=== PATIENT | female | born 1960 | race Caucasian/White ===

== ENCOUNTER 2022-03-25 06:41 | Inpatient (IN) | payer MEDICAID, OTHER ==
[~2022-03-25] VITALS: Ht 152.4 cm; Wt 102.5 kg
[2022-03-25] MEDS ORDERED: ALBUTEROL SULFATE 2.5 MG/0.5 ML INH NEB SOLN INH ONE (07:00)
[2022-03-25] MEDS ORDERED: IPRATROPIUM 0.5MG/ALBUTEROL 2.5MG INH SOL UD 3ML (DUONEB) NEB ONE (07:00)
[2022-03-25] MEDS ORDERED: methylPREDNISolone 125MG 2ML VIAL IV ONE (07:00)
[2022-03-25 07:10] LABS: ABG BASE EXCESS 0.3 (-2.0-2.0); ABG HCO3 24.6 MEQ/L (22.0-26.0); ABG O2 SATURATION 94.9 % (95.0-99.0); ABG PARTIAL PRESSURE CO2 38.8 mmHg (35.0-45.0); ABG PARTIAL PRESSURE O2 65.4 mmHg (75.0-100.0); ABG STANDARD HCO3 24.7 MEQ/L (22.0-26.0); ABG TOTAL CO2 25.8 MEQ/L (23.0-31.0)
[2022-03-25 07:19] LABS: BASO # 0.1 10^3/uL (0.0-0.2); BASO % 1.5 % (0.0-1.0); EOS # 0.2 10^3/uL (0.0-0.5); EOS % 1.7 % (0.0-3.0); HEMATOCRIT 44.4 % (36.0-47.0); HEMOGLOBIN 14.5 g/dl (12.0-15.5); LYMPH # 2.2 10^3/uL (1.5-5.0); LYMPH % 24.8 % (24.0-44.0); MEAN CORPUSCULAR HGB CONC 32.7 g/dl (32.0-36.5); MEAN CORPUSCULAR VOLUME 88.8 fl (80.0-96.0); MONO # 1.3 10^3/uL (0.0-0.8); MONO % 14.5 % (2.0-8.0); NEUTROPHILS # 4.9 10^3/uL (1.5-8.5); PLATELET COUNT, AUTOMATED 343 10^3/uL (150-450); WHITE BLOOD COUNT 8.7 10^3/uL (4.0-10.0)
[2022-03-25 07:40] LABS: INR 0.88; PROTHROMBIN TIME 12.2 SECONDS (12.5-14.5)
[2022-03-25] MEDS ORDERED: ACETAMINOPHEN TAB 650MG DOSE (2X325MG) PO ONE (07:50)
[2022-03-25 07:59] LABS: CK-MB VALUE MASS 3.4 NG/ML (<3.6); MB/CK RELATIVE INDEX 1.63 (< OR =4)
[2022-03-25 08:01] LABS: ALBUMIN 3.8 GM/DL (3.2-5.2); ALT/SGPT 22 U/L (12-78); BILIRUBIN,DIRECT < 0.1 MG/DL (0.0-0.2); BILIRUBIN,TOTAL 0.2 MG/DL (0.2-1.0); BLOOD UREA NITROGEN 8 MG/DL (7-18); CALCIUM LEVEL 8.8 MG/DL (8.8-10.2); CARBON DIOXIDE LEVEL 25 MEQ/L (21-32); CHLORIDE LEVEL 105 MEQ/L (98-107); GLOMERULAR FILTRATION RATE > 60.0 (>45); GLUCOSE, FASTING 149 MG/DL (70-100); NT-PRO BNP 49 PG/ML (<125); SODIUM LEVEL 136 MEQ/L (136-145); THYROXINE (T4) 4.7 UG/DL (4.5-12.0); TOTAL PROTEIN 7.5 GM/DL (6.4-8.2)
[2022-03-25] MEDS ORDERED: AZITHROMYCIN 250MG TABLET PO SCH (09:00)
[2022-03-25 09:03] LABS: CK-MB VALUE MASS 3.4 NG/ML (<3.6); MB/CK RELATIVE INDEX 2.83 (< OR =4)
[2022-03-25] MEDS ORDERED: HOME MED LIST COMPLETE! XX SCH (09:15)
[2022-03-25] MEDS ORDERED: ISOVUE-370 76% 100ML VIAL As Ordered ONE (10:00)
[2022-03-25] MEDS ORDERED: IPRATROPIUM 0.5MG/ALBUTEROL 2.5MG INH SOL UD 3ML (DUONEB) NEB PRN (10:40)
[2022-03-25] MEDS ORDERED: methylPREDNISolone 40MG 1ML VIAL IV ONE (11:30)
[2022-03-25 12:30] VITALS: BP 130/81
[2022-03-25] MEDS: NICOTINE 14 MG/24 HR TRANSDERMAL TD SCH (12:57)
[2022-03-25] MEDS: amLODIPine 5 MG TAB PO SCH (12:58)
[2022-03-25 14:00] VITALS: BP 118/77
[2022-03-25] MEDS: ACETAMINOPHEN TAB 650MG DOSE (2X325MG) PO PRN ×2 (14:06→21:09)
[2022-03-25 14:08] VITALS: O2SAT 90
[2022-03-25] MEDS: IPRATROPIUM 0.5MG/ALBUTEROL 2.5MG INH SOL UD 3ML (DUONEB) NEB SCH ×3 (14:48→19:31)
[2022-03-25] MEDS: methylPREDNISolone 40MG 1ML VIAL IV SCH (16:59)
[2022-03-25 22:00] VITALS: BP 117/78
[2022-03-26] MEDS ORDERED: methylPREDNISolone 40MG 1ML VIAL IV SCH
[2022-03-26] MEDS: IPRATROPIUM 0.5MG/ALBUTEROL 2.5MG INH SOL UD 3ML (DUONEB) NEB SCH ×6 (00:29→21:36)
[2022-03-26] MEDS: methylPREDNISolone 40MG 1ML VIAL IV SCH ×2 (04:24→16:49)
[2022-03-26 06:00] VITALS: BP 103/75
[2022-03-26 06:12] LABS: HEMATOCRIT 41.4 % (36.0-47.0); HEMOGLOBIN 13.4 g/dl (12.0-15.5); MEAN CORPUSCULAR HEMOGLOBIN 29.1 pg (27.0-33.0); MEAN CORPUSCULAR HGB CONC 32.4 g/dl (32.0-36.5); MEAN CORPUSCULAR VOLUME 89.8 fl (80.0-96.0); PLATELET COUNT, AUTOMATED 366 10^3/uL (150-450); RED BLOOD COUNT 4.61 10^6/uL (4.00-5.40); WHITE BLOOD COUNT 8.2 10^3/uL (4.0-10.0)
[2022-03-26 06:43] LABS: ALBUMIN 3.3 GM/DL (3.2-5.2); ALT/SGPT 19 U/L (12-78); BILIRUBIN,TOTAL 0.2 MG/DL (0.2-1.0); BLOOD UREA NITROGEN 14 MG/DL (7-18); CALCIUM LEVEL 9.3 MG/DL (8.8-10.2); CARBON DIOXIDE LEVEL 26 MEQ/L (21-32); CHLORIDE LEVEL 106 MEQ/L (98-107); CREATININE FOR GFR 0.67 MG/DL (0.55-1.30); GLOMERULAR FILTRATION RATE > 60.0 (>45); GLUCOSE, FASTING 143 MG/DL (70-100); MAGNESIUM LEVEL 2.3 MG/DL (1.8-2.4); POTASSIUM SERUM 3.8 MEQ/L (3.5-5.1); SODIUM LEVEL 137 MEQ/L (136-145); TOTAL PROTEIN 6.7 GM/DL (6.4-8.2)
[2022-03-26 08:26] VITALS: BP 118/78
[2022-03-26 08:46] VITALS: BP 147/83
[2022-03-26] MEDS ORDERED: FLUBLOK(EGG FREE)(QUAD)INFLUENZA VACC 0.5ML SYRINGE 18YRS & OLDER IM.IMMUN ONE (09:00)
[2022-03-26] MEDS: ENOXAPARIN 40MG/0.4ML SYRINGE (J1650 PER 10MG) SC SCH (09:29)
[2022-03-26] MEDS: NICOTINE 14 MG/24 HR TRANSDERMAL TD SCH (10:31)
[2022-03-26] MEDS: amLODIPine 5 MG TAB PO SCH (10:33)
[2022-03-26] MEDS: DOXYCYCLINE HYCLATE 100MG TABLET PO SCH ×2 (10:33→21:12)
[2022-03-26] MEDS: NS 1,000 ML IV SCH ×2 (10:41→22:01)
[2022-03-26] MEDS: guaiFENesin ER 600 MG TAB PO SCH ×2 (10:42→21:13)
[2022-03-26 11:36] VITALS: O2SAT 95
[2022-03-26 14:00] VITALS: BP 114/76
[2022-03-26] MEDS ORDERED: RAMELTEON 8 MG TAB (ROZEREM) PO SCH (21:00)
[2022-03-26] MEDS ORDERED: NS 500 ML IV ONE (21:15)
[2022-03-26 22:00] VITALS: BP 142/101
[2022-03-27] MEDS: IPRATROPIUM 0.5MG/ALBUTEROL 2.5MG INH SOL UD 3ML (DUONEB) NEB SCH ×4 (00:19→11:37)
[2022-03-27 00:50] VITALS: BP 142/100
[2022-03-27 01:18] VITALS: BP 150/100
[2022-03-27] MEDS: ACETAMINOPHEN TAB 650MG DOSE (2X325MG) PO PRN ×2 (01:26→10:42)
[2022-03-27] MEDS ORDERED: **hydrALAZINE** 10 MG TAB PO ONE (02:00)
[2022-03-27 02:57] VITALS: BP 142/98
[2022-03-27 06:00] VITALS: BP 131/86
[2022-03-27 06:02] LABS: HEMATOCRIT 40.9 % (36.0-47.0); MEAN CORPUSCULAR HEMOGLOBIN 28.8 pg (27.0-33.0); MEAN CORPUSCULAR HGB CONC 31.8 g/dl (32.0-36.5); MEAN CORPUSCULAR VOLUME 90.7 fl (80.0-96.0); PLATELET COUNT, AUTOMATED 327 10^3/uL (150-450); RED BLOOD COUNT 4.51 10^6/uL (4.00-5.40); WHITE BLOOD COUNT 10.4 10^3/uL (4.0-10.0)
[2022-03-27] MEDS: methylPREDNISolone 40MG 1ML VIAL IV SCH (06:03)
[2022-03-27 06:35] LABS: ALBUMIN 3.1 G/DL (3.2-5.2); ALT/SGPT 18 U/L (7.0-40); BILIRUBIN,TOTAL 0.2 MG/DL (0.3-1.2); BLOOD UREA NITROGEN 15 MG/DL (9-23); CALCIUM LEVEL 8.3 MG/DL (8.3-10.6); CARBON DIOXIDE LEVEL 24 MMOL/L (20-31); CHLORIDE LEVEL 106 MMOL/L (98-107); CREATININE FOR GFR 0.46 MG/DL (0.55-1.30); GLOMERULAR FILTRATION RATE > 60.0 (>45); GLUCOSE, FASTING 96 MG/DL (74-106); POTASSIUM SERUM 3.9 MMOL/L (3.5-5.1); SODIUM LEVEL 140 MMOL/L (136-145); TOTAL PROTEIN 6.2 G/DL
[2022-03-27 08:33] VITALS: BP 128/86
[2022-03-27] MEDS: ENOXAPARIN 40MG/0.4ML SYRINGE (J1650 PER 10MG) SC SCH (09:00)
[2022-03-27] MEDS: guaiFENesin ER 600 MG TAB PO SCH (10:07)
[2022-03-27 10:08] VITALS: BP 128/86
[2022-03-27] MEDS: amLODIPine 5 MG TAB PO SCH (10:08)
[2022-03-27] MEDS: DOXYCYCLINE HYCLATE 100MG TABLET PO SCH (10:09)
[2022-03-27] MEDS: NICOTINE 14 MG/24 HR TRANSDERMAL TD SCH (10:10)
[2022-03-27] MEDS: NS 1,000 ML IV SCH (10:25)
[2022-03-27] MEDS ORDERED: PRED20TA PO (10:34)
[2022-03-27] MEDS ORDERED: ATOR40TA75 PO (10:34)
[2022-03-27] MEDS ORDERED: AMOX875T2 PO (10:34)
[2022-03-27] MEDS ORDERED: ALBU8.5H INH (10:34)
[2022-03-27] MEDS ORDERED: ADV250INH INH (10:34)
[2022-03-27] MEDS ORDERED: AMLO1TAB25 PO (10:34)
== END 2022-03-27 11:45 | disposition home health service (06) | DRG 140 ==
LOC: EDBD 06:41 → M ED 06:41 → M ED INP 10:40 → ENRESERV 11:15 → M MSPAV 12:10
PROVIDERS: ADMIT Family Medicine; ATTEND Internal Medicine
DX: J44.1 Chronic obstructive pulmonary disease with (acute) exacerbation (principal); E87.20 Acidosis, unspecified; Z91.14 Patient's other noncompliance with medication regimen; F17.200 Nicotine dependence, unspecified, uncomplicated; I10 Essential (primary) hypertension; E78.5 Hyperlipidemia, unspecified; Z79.899 Other long term (current) drug therapy

== ENCOUNTER → 2022-04-02 | Outpatient (REF) | payer MEDICAID ==
[~2022-04-02] MED LIST: ADV250INH INH; ALBU8.5H INH; AMLO1TAB25 PO; AMOX875T2 PO; ATOR40TA75 PO; PRED20TA PO
[2022-04-02 18:00] LABS: BASO # 0.1 10^3/uL (0.0-0.2); BASO % 0.4 % (0.0-1.0); EOS # 0.3 10^3/uL (0.0-0.5); EOS % 1.9 % (0.0-3.0); HEMATOCRIT 48.3 % (36.0-47.0); HEMOGLOBIN 15.7 g/dl (12.0-15.5); LYMPH # 4.3 10^3/uL (1.5-5.0); LYMPH % 33.4 % (24.0-44.0); MEAN CORPUSCULAR HEMOGLOBIN 28.5 pg (27.0-33.0); MEAN CORPUSCULAR HGB CONC 32.5 g/dl (32.0-36.5); MEAN CORPUSCULAR VOLUME 87.8 fl (80.0-96.0); MONO # 1.1 10^3/uL (0.0-0.8); MONO % 8.8 % (2.0-8.0); NEUTROPHILS % 54.7 % (36.0-66.0); PLATELET COUNT, AUTOMATED 483 10^3/uL (150-450); WHITE BLOOD COUNT 12.8 10^3/uL (4.0-10.0)
[2022-04-02 18:38] LABS: ALBUMIN 3.7 G/DL (3.2-5.2); ALT/SGPT 26 U/L (7.0-40); BILIRUBIN,TOTAL 0.5 MG/DL (0.3-1.2); BLOOD UREA NITROGEN 15 MG/DL (9-23); CALCIUM LEVEL 9.4 MG/DL (8.3-10.6); CARBON DIOXIDE LEVEL 26 MMOL/L (20-31); CHLORIDE LEVEL 103 MMOL/L (98-107); CHOLESTEROL LEVEL 174 MG/DL (<200); CREATININE FOR GFR 0.67 MG/DL (0.55-1.30); GLOMERULAR FILTRATION RATE > 60.0 (>45); GLUCOSE, FASTING 124 MG/DL (74-106); HDL CHOLESTEROL 43.4 MG/DL (>40); LDL CHOLESTEROL 85.6 MG/DL (<100); NON-HDL-C 131 MG/DL; POTASSIUM SERUM 3.9 MMOL/L (3.5-5.1); SODIUM LEVEL 140 MMOL/L (136-145); THYROID STIMULATING HORMONE 3.022 uIU/ML (0.55-4.78); TOTAL 25(OH) VITAMIN D 18.9 NG/ML (20.0-100.0); TOTAL PROTEIN 7.1 G/DL (5.7-8.2); TRIGLYCERIDES LEVEL 225 MG/DL (<150)
[2022-04-02 22:13] LABS: HEMOGLOBIN A1c 6.2 % (4.0-6.0)
== END ==
LOC: M LAB REF 17:35
PROVIDERS: ATTEND Nurse Practitioner Family
DX: Z13.228 Encounter for screening for other metabolic disorders (principal)